=== PATIENT | female | born 1950 | race Caucasian/White ===

== ENCOUNTER 2018-01-18 10:55 | Emergency (ER) | payer OTHER ==
[~2018-01-18] VITALS: Ht 157.5 cm; Wt 55.3 kg
[2018-01-18 11:36] LABS: HEMATOCRIT 39.8 % (36.0-46.0); HEMOGLOBIN 13.7 G/DL (11.9-15.5); MCHC 34.4 G/DL (30.0-36.0); MCV 87.3 FL (83-99); PLATELET COUNT 197 K/uL (156-360); RBC DIS.WIDTH-CV 12.2 % (11.8-14.6); RBC DIS.WIDTH-SD 39.5 % (39-53); RED BLOOD COUNT 4.56 M/uL (3.80-5.20); WHITE BLOOD COUNT 4.3 K/uL (4.1-10.2)
[2018-01-18 11:46] LABS: ALBUMIN 4.5 g/dL (3.2-4.8); CHLORIDE 107 mEq/L (99-109); POTASSIUM 3.7 mEq/L (3.7-5.4); SODIUM 141 mEq/L (136-147)
[2018-01-18 11:48] LABS: GLUCOSE 97 mg/dL (70-99)
[2018-01-18 11:49] LABS: TOTAL PROTEIN 7.1 g/dL (6.4-8.3)
[2018-01-18 11:50] LABS: TOTAL BILIRUBIN 0.6 mg/dL (0.0-1.0)
[2018-01-18 11:52] LABS: ALKALINE PHOSPHATASE 69 IU/L (3-129); CREATININE 0.8 mg/dL (0.6-1.3); GFR ESTIMATE (CALCULATED) > 59 mL/min/
[2018-01-18 11:53] LABS: UREA NITROGEN (BUN) 25 mg/dL (9-23)
[2018-01-18 11:54] LABS: AST (GOT) 20 IU/L (2-34)
[2018-01-18 11:55] LABS: ALT (GPT) 18 IU/L (3-49)
[2018-01-18 13:22] LABS: APPEARANCE CLEAR ((CLEAR)); BILIRUBIN NEGATIVE; BLOOD NEGATIVE; COLOR YELLOW ((YELLOW)); GLUCOSE (STRIP) NEGATIVE; KETONES NEGATIVE; LEUKOCYTES NEGATIVE; NITRITE NEGATIVE; PROTEIN (STRIP) 30; SPECIFIC GRAVITY 1.031 (1.000-1.030); UCUL ADDED? NO; UROBILINOGEN 0.2 MG/DL (0.2-1.0)
[2018-01-18 13:58] LABS: LIPASE 10 U/L (1.0-51.0)
[2018-01-18] MEDS ORDERED: LEVSIN0.125 MG PO (14:40)
[2018-01-18] MEDS ORDERED: REGLAN10 MG PO (14:40)
[2018-01-18 15:35] VITALS: BP 153/90
== END 2018-01-18 15:38 | disposition home or self-care (01) ==
LOC: EME 10:55
DX: R10.9 Unspecified abdominal pain (principal); R19.7 Diarrhea, unspecified; R11.2 Nausea with vomiting, unspecified; I10 Essential (primary) hypertension; E78.00 Pure hypercholesterolemia, unspecified
CPT/HCPCS: 74177; 80053; 81003; 83690; 85027; 99281; 99284; J2765; J3010; J7120